=== PATIENT | male | born 1965 | race Caucasian/White ===

== ENCOUNTER 2019-05-09 20:06 | Emergency (ER) | payer SELFPAY ==
[~2019-05-09] VITALS: Ht 165.1 cm; Wt 78.9 kg
[2019-05-09 20:15] VITALS: BP 150/69
[2019-05-09] MEDS ORDERED: ACETAMINOPHEN EXTRA STRENGTH 500 MG TAB PO ONE (20:30)
--- NOTE | 2019-05-09 20:30 | NUR ---
FLU SWAB COLLECTED AND GIVEN TO LAB
--- NOTE | 2019-05-09 20:35 | NUR ---
PT ASSESMENT COMPLETE. PT SEATED UPRIGHT IN CHAIR. WILL CONTINUE TO MONITOR.
[2019-05-09] MEDS ORDERED: KETOROLAC 30 MG/ML VIAL IM ONE (21:10)
[2019-05-09 21:54] VITALS: BP 146/64
--- NOTE | 2019-05-09 21:55 | NUR ---
PT TEMP AT 99.1 AND PAIN DECREASED TO 4/10. WILL CONTINUE TO MONITOR.
--- NOTE | 2019-05-09 22:23 | NUR ---
Patient discharged with v/s stable. Written and verbal after care instructions given and explained. Patient alert, oriented and verbalized understanding of instructions. Ambulatory with steady gait. All questions addressed prior to discharge. ID band removed. Patient advised to follow up with PMD. Rx of AZTHROMYCN, TAMIFLU, AND TYLENOL given. Patient educated on indication of medication including possible reaction and side effects. Opportunity to ask questions provided and answered.
== END 2019-05-09 22:23 | disposition home or self-care (01) ==
LOC: MED 20:06
DX: J20.9 Acute bronchitis, unspecified (principal); Z88.6 Allergy status to analgesic agent
CPT/HCPCS: 71045; 87804; 96372; 99284; J1885

== ENCOUNTER 2019-12-30 00:22 | Emergency (ER) | payer SELFPAY ==
[~2019-12-30] VITALS: Ht 165.1 cm; Wt 81.6 kg
[2019-12-30 00:31] VITALS: BP 131/73
[2019-12-30 01:10] VITALS: BP 131/73
== END 2019-12-30 01:10 ==
LOC: MED 00:22
DX: R07.89 Other chest pain (principal); Z04.1 Encounter for examination and observation following transport accident; Z02.89 Encounter for other administrative examinations; Z88.6 Allergy status to analgesic agent
CPT/HCPCS: 71045; 99283